=== PATIENT | male | born 1960 | race Caucasian/White ===

== ENCOUNTER → 2021-04-08 | Outpatient (CLI) | payer BC | LOC: COL.RAD 09:29 | DX: M19.011 Primary osteoarthritis, right shoulder (principal) ==

== ENCOUNTER 2021-06-27 09:59 | Day surgery (SDC) | payer BC ==
[~2021-06-27] VITALS: Ht 152.4 cm; Wt 91.4 kg
[2021-06-27] MEDS ORDERED: FLOMAX 0.40.4 MG/CAP PO (11:56)
[2021-06-27] MEDS ORDERED: PRINIVIL10 MG PO (11:56)
[2021-06-27] MEDS ORDERED: CYMBALTA 20MG20 MG PO (11:57)
[2021-06-27] MEDS ORDERED: LIPITOR 40MG TA40 MG PO (11:57)
[2021-06-27 12:15] VITALS: BP 150/77; PULSE 59; TEMP 97.9
[2021-06-27 13:40] VITALS: BP 143/75; PULSE 52; TEMP 97.2
[2021-06-27 13:45] VITALS: BP 146/82; PULSE 53
[2021-06-27 14:00] VITALS: BP 162/97; PULSE 54
[2021-06-27 14:15] VITALS: BP 172/85; PULSE 49
[2021-06-27 14:30] VITALS: BP 167/80; PULSE 60
--- NOTE | 2021-06-27 14:55 | NUR ---
1340 Pt returns from endo procedure via cart and RN assist to [facility]. Pt ambulates from cart to recliner with RN assist. Monitors on and alarms set. Call light within reach. Report received from JEAN PAUL Haque. Pt alert and oriented. Pt requests Sprite and muffin. Pt denies any pain or nausea. Pt's present in room. 1400 Pt taking food and drink well. No complications noted. 1438 Discharge instructions given to pt and pt's . All questions answered to their satisfaction. Handed to pt are a thank you card and discharge information. 1455 Pt transferred out of the hospital via wheelchair and this RN assist, to private vehicle driven by pt's .
== END 2021-06-27 14:55 | disposition home or self-care (01) ==
LOC: SDCO 09:59
DX: Z12.11 Encounter for screening for malignant neoplasm of colon (principal); Z86.010 Personal history of colon polyps; Z87.891 Personal history of nicotine dependence
CPT/HCPCS: J2704; J7120